=== PATIENT | female | born 1975 | race Two or more races ===

== ENCOUNTER 2023-09-22 09:51 | Inpatient (IN) | payer OTHER ==
[~2023-09-22] VITALS: Ht 157.5 cm; Wt 68.2 kg
[2023-09-22 10:49] LABS: BASOPHILS % (AUTO) 0.4 % (0.0-2.0); EOSINOPHILS % (AUTO) 0.6 % (1.0-6.0); HEMATOCRIT 39.7 % (36-46); HEMOGLOBIN 13.5 g/dL (12.0-16.0); LYMPHOCYTES % (AUTO) 19.4 % (22.0-44.0); MEAN CORPUSCULAR HEMOGLOBIN 29.9 pg (26.0-34.0); MEAN CORPUSCULAR VOLUME 88 fL (80-100); MONOCYTES # (AUTO) 0.4 K/uL (0.1-1.0); MONOCYTES % (AUTO) 4.1 % (2.0-9.0); NEUTROPHILS # (AUTO) 7.9 K/uL (1.8-7.7); NEUTROPHILS % (AUTO) 75.5 % (40.0-70.0); PLATELET COUNT (AUTO) 261 K/uL (150-450); RED BLOOD CELL COUNT(AUTO) 4.51 MIL/uL (4.00-5.20); RED CELL DISTRIBUTION WIDTH 13.3 % (11.5-14.5); WHITE BLOOD COUNT (AUTO) 10.5 K/uL (4.5-11.0)
[2023-09-22 11:06] LABS: ANION GAP 5 mmol/L (8-16); CARBON DIOXIDE 28 mmol/L (22-29); CHLORIDE 102 mmol/L (98-107); POTASSIUM 3.3 mmol/L (3.5-5.1); SODIUM SERUM 135 mmol/L (136-145)
[2023-09-22 11:09] LABS: CALCIUM, TOTAL 9.4 mg/dL (8.8-10.5); CREATININE 0.59 mg/dL (0.60-1.30); GLOMERULAR FILTR. RATE CALC > 60 mL/min (>60); GLUCOSE,RANDOM 115 mg/dL (70-110); UREA NITROGEN, BLOOD 10 mg/dL (7-18)
[2023-09-22] MEDS ORDERED: MAGNESIUM HYDROXIDE SUSPENSION 30 ML UDCUP PO PRN (12:30)
[2023-09-22] MEDS: POTASSIUM CHLORIDE 20 MEQ ER TABLET PO ONE (13:13)
[2023-09-22 14:15] VITALS: BP 127/78; PULSE 77; RESP 19; TEMP 97.9
[2023-09-22] MEDS ORDERED: PNEUMOCOCCAL VACCINE POLYVALENT 0.5 ML SYRINGE [PPSV23] IM. ONE (15:30)
[2023-09-22] MEDS: ACETAMINOPHEN 325 MG TABLET PO PRN (19:32)
[2023-09-22 20:17] VITALS: BP 139/89; PULSE 88; RESP 18; TEMP 98.1
[2023-09-22 21:42] LABS: APPEARANCE,URINE CLEAR (CLEAR); BILIRUBIN,URINE NEGATIVE (NEGATIVE); COLOR,URINE LIGHT YELLOW (YELLOW); GLUCOSE, URINE (UA) NEGATIVE (NEGATIVE); KETONES,URINE NEGATIVE (NEGATIVE); LEUKOCYTE ESTERASE ,URINE NEGATIVE (NEGATIVE); NITRATE,URINE NEGATIVE (NEGATIVE); OCCULT BLOOD,URINE NEGATIVE (NEGATIVE); PH,URINE 6.5 (5.0-8.0); PROTEIN,URINE NEGATIVE (NEGATIVE); UROBILINOGEN,URINE <=1.0 mg/dL (<=1.0)
[2023-09-22 21:48] LABS: ALCOHOL, URINE DRUG SCREEN NEGATIVE (NEGATIVE); AMPHET/METH SCREEN,URINE NEGATIVE (NEGATIVE); BARBITURATE SCREEN, URINE NEGATIVE (NEGATIVE); BENZODIAZEPINES SCREEN,URINE NEGATIVE (NEGATIVE); CANNABINOID SCREEN,URINE NEGATIVE (NEGATIVE); COCAINE SCREEN,URINE NEGATIVE (NEGATIVE); METHADONE SCREEN, URINE NEGATIVE (NEGATIVE); OPIATE SCREEN,URINE NEGATIVE (NEGATIVE); PHENCYCLIDINE SCREEN,URINE NEGATIVE (NEGATIVE)
[2023-09-22 21:55] LABS: PH,URINE DRUG SCREEN 6.5 (5.0-8.0)
[2023-09-23 04:46] VITALS: BP 131/74; PULSE 79; RESP 18; TEMP 97.9
[2023-09-23] MEDS: FAMOTIDINE 20 MG TABLET PO SCH (08:16)
[2023-09-23 08:37] VITALS: BP 140/88; PULSE 93; RESP 20; TEMP 98.7
== END 2023-09-23 17:43 | DRG 641 ==
LOC: EMS 09:51 → EDH 12:22 → 6S 13:43
PROVIDERS: ADMIT Internal Medicine; ATTEND Internal Medicine
DX: E87.6 Hypokalemia (principal); I10 Essential (primary) hypertension
CPT/HCPCS: 74176; 80048; 80307; 81003; 84703; 85025; 99285